=== PATIENT | male | born 1950 | race Asian ===

== ENCOUNTER 2020-03-28 13:46 | Inpatient (IN) | payer MEDICARE, SELFPAY ==
[~2020-03-28] VITALS: Ht 170.2 cm; Wt 63.5 kg
[2020-03-28 13:46] VITALS: BP_SYST 140
[2020-03-28 15:34] LABS: BASOPHILS # (AUTO) 0.1 K/uL (0.0-0.2); BASOPHILS % (AUTO) 2.7 % (0.0-2.0); EOSINOPHILS # (AUTO) 0.2 K/uL (0.0-0.4); HEMATOCRIT 50.9 % (36-54); HEMOGLOBIN 17.2 g/dL (14.0-18.0); LYMPHOCYTES # (AUTO) 0.5 K/uL (1.0-5.5); LYMPHOCYTES % (AUTO) 12.4 % (20.5-51.5); MEAN CORPUSCULAR HEMOGLOBIN 33 pg (27-31); MEAN CORPUSCULAR HGB CONC 34 % (32-36); MEAN CORPUSCULAR VOLUME 98 fL (79.0-98.0); MONOCYTES # (AUTO) 0.3 K/uL (0.0-1.0); MONOCYTES % (AUTO) 8.3 % (1.7-9.3); NEUTROPHILS # (AUTO) 2.6 K/uL (1.8-7.7); NEUTROPHILS % (AUTO) 71.6 % (40.0-70.0); PLATELET COUNT (AUTO) 103 K/uL (130-430); RED BLOOD CELL COUNT(AUTO) 5.21 MIL/uL (4.2-6.2); RED CELL DISTRIBUTION WIDTH 12.6 % (9.0-15.0); WHITE BLOOD COUNT (AUTO) 3.7 K/uL (4.8-10.8)
[2020-03-28 15:51] LABS: ALBUMIN 3.3 g/dL (3.4-4.8); CALCIUM 8.1 mg/dL (8.4-11.0); CREATININE 0.9 mg/dL (0.55-1.30); POTASSIUM 3.5 mmol/L (3.5-5.1); TOTAL BILIRUBIN 0.6 mg/dL (0.0-1.0)
[2020-03-28] MEDS ORDERED: NACL 0.9% 1,000 ML IV ONE (16:30)
[2020-03-28 16:45] LABS: C-REACTIVE PROTEIN QUANT 4.8 mg/dL (0-0.5)
[2020-03-28] MEDS ORDERED: ASPIRIN 81 MG TAB.CHEW PO ONE (17:00)
[2020-03-28] MEDS ORDERED: ACETAMINOPHEN 325 MG TABLET PO PRN (18:15)
[2020-03-28] MEDS ORDERED: ONDANSETRON HCL 4 MG/2 ML VIAL IVP PRN (18:15)
[2020-03-28] MEDS ORDERED: cloNIDine HCL 0.1 MG TABLET PO PRN (18:30)
[2020-03-28] MEDS ORDERED: ALBUTEROL MDI INHALATION 8 GM INH INH SCH (19:00)
[2020-03-28] MEDS: FAMOTIDINE 20 MG TABLET PO SCH (19:05)
[2020-03-28] MEDS: POTASSIUM CHLORIDE 10 MEQ in NACL 0.9% 1,000 ML IV SCH (19:10)
[2020-03-28] MEDS ORDERED: METOPROLOL TARTRATE 25 MG TABLET PO ONE (20:45)
[2020-03-28] MEDS: AZITHROMYCIN 500 MG in NS 250 ML IV SCH (20:58)
[2020-03-28] MEDS ORDERED: METOPROLOL TARTRATE 25 MG TABLET ONE (20:58)
[2020-03-28] MEDS: cefTRIAXone 1 GM in D5W 50 ML IV SCH (20:59)
[2020-03-28] MEDS: DEXAMETHASONE SOD PHOSPHATE 10 MG/ML VIAL IVP SCH (20:59)
[2020-03-28] MEDS: ASCORBIC ACID 500 MG TABLET PO SCH (21:00)
[2020-03-28] MEDS ORDERED: ENOXAPARIN SODIUM 40 MG/0.4 ML SYRINGE SUBCUT ONE (22:00)
[2020-03-28] MEDS ORDERED: ENOXAPARIN SODIUM 40 MG/0.4 ML SYRINGE ONE (23:26)
[2020-03-29 00:42] LABS: CALCIUM 7.3 mg/dL (8.4-11.0); CREATININE 0.83 mg/dL (0.55-1.30); POTASSIUM 3.7 mmol/L (3.5-5.1)
[2020-03-29 00:52] LABS: ALBUMIN 2.6 g/dL (3.4-4.8); TOTAL BILIRUBIN 0.4 mg/dL (0.0-1.0)
[2020-03-29 00:59] LABS: C-REACTIVE PROTEIN QUANT 4.5 mg/dL (0-0.5)
[2020-03-29 04:18] VITALS: BP_SYST 121
[2020-03-29] MEDS: POTASSIUM CHLORIDE 10 MEQ in NACL 0.9% 1,000 ML IV SCH ×2 (05:47→17:23)
[2020-03-29] MEDS: ASCORBIC ACID 500 MG TABLET PO SCH ×2 (08:50→21:30)
[2020-03-29] MEDS: FAMOTIDINE 20 MG TABLET PO SCH (08:50)
[2020-03-29] MEDS: CHOLECALCIFEROL (VITAMIN D3) 5,000 UNIT TABLET PO SCH (08:55)
[2020-03-29] MEDS: METOPROLOL TARTRATE 25 MG TABLET PO SCH ×2 (09:00→21:30)
[2020-03-29 09:10] VITALS: BP_SYST 113
[2020-03-29 09:18] LABS: BASOPHILS % (AUTO) 0.4 % (0.0-2.0); HEMATOCRIT 47.7 % (36-54); HEMOGLOBIN 16.2 g/dL (14.0-18.0); LYMPHOCYTES # (AUTO) 0.5 K/uL (1.0-5.5); LYMPHOCYTES % (AUTO) 16.7 % (20.5-51.5); MEAN CORPUSCULAR HEMOGLOBIN 33 pg (27-31); MEAN CORPUSCULAR HGB CONC 34 % (32-36); MEAN CORPUSCULAR VOLUME 97 fL (79.0-98.0); MONOCYTES # (AUTO) 0.3 K/uL (0.0-1.0); MONOCYTES % (AUTO) 9.3 % (1.7-9.3); NEUTROPHILS # (AUTO) 2.1 K/uL (1.8-7.7); NEUTROPHILS % (AUTO) 73.6 % (40.0-70.0); RED BLOOD CELL COUNT(AUTO) 4.91 MIL/uL (4.2-6.2); RED CELL DISTRIBUTION WIDTH 12.3 % (9.0-15.0)
[2020-03-29] MEDS ORDERED: AMIODARONE HCL 200 MG TABLET PO ONE (09:45)
[2020-03-29] MEDS ORDERED: *LOVENOX 1MG/KG Q12H/PHARMACY XX ONE (09:45)
[2020-03-29 10:58] LABS: WHITE BLOOD COUNT (AUTO) 2.8 K/uL (4.8-10.8)
[2020-03-29] MEDS ORDERED: ENOXAPARIN SODIUM 80 MG/0.8 ML SYRINGE SUBCUT ONE (11:00)
[2020-03-29] MEDS ORDERED: AMIODARONE HCL 200 MG TABLET ONE (12:25)
[2020-03-29] MEDS: AMIODARONE HCL 200 MG TABLET PO SCH ×2 (12:59→21:30)
[2020-03-29 13:00] VITALS: BP_SYST 108; BP_SYST 110
[2020-03-29 13:13] LABS: PLATELET COUNT (AUTO) 94 K/uL (130-430)
[2020-03-29 17:20] VITALS: BP_SYST 116
[2020-03-29 20:05] VITALS: BP_SYST 134
[2020-03-29] MEDS: DEXAMETHASONE SOD PHOSPHATE 10 MG/ML VIAL IVP SCH (21:00)
[2020-03-29] MEDS: AZITHROMYCIN 500 MG in NS 250 ML IV SCH (21:05)
[2020-03-29] MEDS: ENOXAPARIN SODIUM 80 MG/0.8 ML SYRINGE SUBCUT SCH (21:30)
[2020-03-29] MEDS: cefTRIAXone 1 GM in D5W 50 ML IV SCH (22:05)
[2020-03-30] VITALS (7 sets, daily range): BP systolic 124–160
[2020-03-30] MEDS: POTASSIUM CHLORIDE 10 MEQ in NACL 0.9% 1,000 ML IV SCH ×2 (02:00→09:30)
[2020-03-30] MEDS: AMIODARONE HCL 200 MG TABLET PO SCH ×3 (06:30→21:05)
[2020-03-30 08:27] LABS: BASOPHILS % (AUTO) 0.1 % (0.0-2.0); HEMATOCRIT 45.2 % (36-54); HEMOGLOBIN 15.3 g/dL (14.0-18.0); LYMPHOCYTES # (AUTO) 0.4 K/uL (1.0-5.5); LYMPHOCYTES % (AUTO) 5.3 % (20.5-51.5); MEAN CORPUSCULAR HEMOGLOBIN 33 pg (27-31); MEAN CORPUSCULAR HGB CONC 34 % (32-36); MEAN CORPUSCULAR VOLUME 98 fL (79.0-98.0); MONOCYTES # (AUTO) 0.3 K/uL (0.0-1.0); MONOCYTES % (AUTO) 3.5 % (1.7-9.3); NEUTROPHILS # (AUTO) 6.7 K/uL (1.8-7.7); NEUTROPHILS % (AUTO) 91.1 % (40.0-70.0); PLATELET COUNT (AUTO) 105 K/uL (130-430); RED BLOOD CELL COUNT(AUTO) 4.63 MIL/uL (4.2-6.2); RED CELL DISTRIBUTION WIDTH 12.9 % (9.0-15.0); WHITE BLOOD COUNT (AUTO) 7.3 K/uL (4.8-10.8)
[2020-03-30 08:57] LABS: ALBUMIN 2.4 g/dL (3.4-4.8); BILIRUBIN,DIRECT 0.2 mg/dL (0.0-0.3); CALCIUM 7.6 mg/dL (8.4-11.0); CREATININE 0.8 mg/dL (0.55-1.30); POTASSIUM 3.7 mmol/L (3.5-5.1); TOTAL BILIRUBIN 0.3 mg/dL (0.0-1.0)
[2020-03-30] MEDS: METOPROLOL TARTRATE 25 MG TABLET PO SCH ×2 (09:02→21:05)
[2020-03-30] MEDS: CHOLECALCIFEROL (VITAMIN D3) 5,000 UNIT TABLET PO SCH (09:03)
[2020-03-30] MEDS: FAMOTIDINE 20 MG TABLET PO SCH (09:03)
[2020-03-30] MEDS: ASCORBIC ACID 500 MG TABLET PO SCH ×2 (09:03→21:05)
[2020-03-30] MEDS: ENOXAPARIN SODIUM 80 MG/0.8 ML SYRINGE SUBCUT SCH ×2 (09:04→21:00)
[2020-03-30 10:06] LABS: C-REACTIVE PROTEIN QUANT 4.6 mg/dL (0-0.5)
[2020-03-30] MEDS ORDERED: ALPRAZolam 0.25 MG TABLET PO PRN (14:00)
[2020-03-30] MEDS ORDERED: LOPERAMIDE HCL 2 MG CAPSULE PO PRN ×2 (14:00→14:15)
[2020-03-30] MEDS: AZITHROMYCIN 500 MG in NS 250 ML IV SCH (20:05)
[2020-03-30] MEDS: DEXAMETHASONE SOD PHOSPHATE 10 MG/ML VIAL IVP SCH (20:05)
[2020-03-30] MEDS: cefTRIAXone 1 GM in D5W 50 ML IV SCH (21:05)
[2020-03-31] VITALS (14 sets, daily range): BP systolic 96–146
[2020-03-31 04:59] LABS: PLATELET COUNT (AUTO) 130 K/uL (130-430)
[2020-03-31 05:04] LABS: BASOPHILS % (AUTO) 0.3 % (0.0-2.0); HEMATOCRIT 51.8 % (36-54); HEMOGLOBIN 17.1 g/dL (14.0-18.0); LYMPHOCYTES # (AUTO) 0.4 K/uL (1.0-5.5); LYMPHOCYTES % (AUTO) 2.9 % (20.5-51.5); MEAN CORPUSCULAR HEMOGLOBIN 33 pg (27-31); MEAN CORPUSCULAR HGB CONC 33 % (32-36); MEAN CORPUSCULAR VOLUME 100 fL (79.0-98.0); MONOCYTES # (AUTO) 0.4 K/uL (0.0-1.0); MONOCYTES % (AUTO) 2.8 % (1.7-9.3); NEUTROPHILS # (AUTO) 12.3 K/uL (1.8-7.7); WHITE BLOOD COUNT (AUTO) 13.1 K/uL (4.8-10.8)
[2020-03-31 05:08] LABS: C-REACTIVE PROTEIN QUANT 7.8 mg/dL (0-0.5)
[2020-03-31 05:11] LABS: INR 1.2 (0.80-1.20)
[2020-03-31 05:12] LABS: ALBUMIN 2.4 g/dL (3.4-4.8); CALCIUM 7.7 mg/dL (8.4-11.0); CREATININE 1.45 mg/dL (0.55-1.30); POTASSIUM 3.9 mmol/L (3.5-5.1); TOTAL BILIRUBIN 0.5 mg/dL (0.0-1.0)
[2020-03-31] MEDS: AMIODARONE HCL 200 MG TABLET PO SCH (06:00)
[2020-03-31] MEDS: ASCORBIC ACID 500 MG TABLET PO SCH ×2 (09:00→22:11)
[2020-03-31] MEDS: CHOLECALCIFEROL (VITAMIN D3) 5,000 UNIT TABLET PO SCH (09:00)
[2020-03-31] MEDS: ENOXAPARIN SODIUM 80 MG/0.8 ML SYRINGE SUBCUT SCH ×2 (09:00→22:14)
[2020-03-31] MEDS: METOPROLOL TARTRATE 25 MG TABLET PO SCH ×2 (09:00→22:25)
[2020-03-31] MEDS ORDERED: AMIODARONE HCL 450 MG in D5W 241 ML IV SCH (11:45)
[2020-03-31] MEDS ORDERED: NS 1000 ML IV.SOLN IV ONE (13:06)
[2020-03-31 14:44] LABS: BASOPHILS # (AUTO) 0.1 K/uL (0.0-0.2); BASOPHILS % (AUTO) 0.5 % (0.0-2.0); HEMATOCRIT 54.3 % (36-54); HEMOGLOBIN 17.8 g/dL (14.0-18.0); LYMPHOCYTES # (AUTO) 0.4 K/uL (1.0-5.5); LYMPHOCYTES % (AUTO) 2.6 % (20.5-51.5); MEAN CORPUSCULAR HEMOGLOBIN 33 pg (27-31); MEAN CORPUSCULAR HGB CONC 33 % (32-36); MEAN CORPUSCULAR VOLUME 100 fL (79.0-98.0); MONOCYTES # (AUTO) 0.3 K/uL (0.0-1.0); MONOCYTES % (AUTO) 1.9 % (1.7-9.3); NEUTROPHILS # (AUTO) 13.9 K/uL (1.8-7.7); PLATELET COUNT (AUTO) 116 K/uL (130-430); RED BLOOD CELL COUNT(AUTO) 5.43 MIL/uL (4.2-6.2); RED CELL DISTRIBUTION WIDTH 13.6 % (9.0-15.0); WHITE BLOOD COUNT (AUTO) 14.7 K/uL (4.8-10.8)
[2020-03-31] MEDS: PIPERACILLIN/TAZO 4.5GM/DEX-IS 100 ML IV SCH ×2 (15:22→22:08)
[2020-03-31] MEDS: INSULIN LISPRO SLIDING SCALE 100 UNITS/ML VIAL (humaLOG) SUBCUT PRN (15:28)
[2020-03-31] MEDS: FAMOTIDINE PF 20 MG/2 ML VIAL IVP SCH (16:42)
[2020-03-31] MEDS: PROPOFOL DRIP 100 ML IV PRN (18:08)
[2020-03-31 18:39] LABS: CALCIUM 7.5 mg/dL (8.4-11.0); CREATININE 1.69 mg/dL (0.55-1.30); POTASSIUM 3.8 mmol/L (3.5-5.1)
[2020-03-31] MEDS ORDERED: SODIUM BICARBONATE 8.4% JECT 50 MEQ/50 ML SYRINGE IVP ONE (19:00)
[2020-03-31 19:36] LABS: BILIRUBIN,URINE NEGATIVE (NEGATIVE); BLOOD, URINE 3+ (NEGATIVE); CLARITY/URINE SL CLOUDY (CLEAR); COLOR,URINE RED (YELLOW); GLUCOSE,URINE 2+ (NEGATIVE); KETONES,URINE TRACE (NEGATIVE); LEUKOCYTE ESTERASE ,URINE NEGATIVE (NEGATIVE); NITRITE, URINE NEGATIVE (NEGATIVE); PROTEIN URINE 2+ (NEGATIVE); UROBILINOGEN,URINE 0.2 (0.2-1.0)
[2020-03-31 19:43] LABS: BACTERIA,URINE FEW /HPF (None Seen); MUCUS,URINE None Seen /LPF (None Seen); RBC,URINE >100 /HPF (0-3); WBC,URINE 0-3 /HPF (0-3)
[2020-03-31] MEDS ORDERED: NALOXONE HCL 0.4 MG/ML AMP (NARCAN) IVP PRN (19:45)
[2020-03-31] MEDS: AZITHROMYCIN 500 MG in NS 250 ML IV SCH (22:06)
[2020-03-31] MEDS: DEXAMETHASONE SOD PHOSPHATE 10 MG/ML VIAL IVP SCH (22:10)
[2020-03-31] MEDS: POTASSIUM CHLORIDE 10 MEQ in NACL 0.9% 1,000 ML IV SCH (22:28)
[2020-04-01] VITALS (26 sets, daily range): BP systolic 73–116
[2020-04-01] MEDS ORDERED: NOREPINEPHRINE BITARTRATE 4 MG in NS 246 ML IV PRN (00:45)
[2020-04-01] MEDS ORDERED: NOREPINEPHRINE 4 MG/4 ML VIAL IV ONE (00:45)
[2020-04-01] MEDS: PIPERACILLIN/TAZO 4.5GM/DEX-IS 100 ML IV SCH ×3 (04:26→20:46)
[2020-04-01] MEDS: PROPOFOL DRIP 100 ML IV PRN (04:31)
[2020-04-01] MEDS: INSULIN LISPRO SLIDING SCALE 100 UNITS/ML VIAL (humaLOG) SUBCUT PRN ×2 (06:03→13:13)
[2020-04-01 08:09] LABS: BASOPHILS % (AUTO) 0.2 % (0.0-2.0); HEMATOCRIT 45.7 % (36-54); HEMOGLOBIN 15.2 g/dL (14.0-18.0); LYMPHOCYTES # (AUTO) 0.3 K/uL (1.0-5.5); LYMPHOCYTES % (AUTO) 3.2 % (20.5-51.5); MEAN CORPUSCULAR HEMOGLOBIN 33 pg (27-31); MEAN CORPUSCULAR HGB CONC 33 % (32-36); MEAN CORPUSCULAR VOLUME 99 fL (79.0-98.0); MONOCYTES # (AUTO) 0.2 K/uL (0.0-1.0); MONOCYTES % (AUTO) 2.2 % (1.7-9.3); NEUTROPHILS # (AUTO) 8.5 K/uL (1.8-7.7); PLATELET COUNT (AUTO) 78 K/uL (130-430); RED BLOOD CELL COUNT(AUTO) 4.64 MIL/uL (4.2-6.2); RED CELL DISTRIBUTION WIDTH 13.2 % (9.0-15.0)
[2020-04-01 08:17] LABS: ALBUMIN 1.9 g/dL (3.4-4.8); CALCIUM 7.2 mg/dL (8.4-11.0); CREATININE 1.49 mg/dL (0.55-1.30); POTASSIUM 3.8 mmol/L (3.5-5.1); TOTAL BILIRUBIN 0.5 mg/dL (0.0-1.0)
[2020-04-01 08:44] LABS: C-REACTIVE PROTEIN QUANT 9.5 mg/dL (0-0.5)
[2020-04-01] MEDS: ASCORBIC ACID 500 MG TABLET PO SCH ×2 (09:00→20:49)
[2020-04-01] MEDS: CHOLECALCIFEROL (VITAMIN D3) 5,000 UNIT TABLET PO SCH (09:00)
[2020-04-01] MEDS: METOPROLOL TARTRATE 25 MG TABLET PO SCH ×2 (09:00→20:55)
[2020-04-01] MEDS: ENOXAPARIN SODIUM 80 MG/0.8 ML SYRINGE SUBCUT SCH ×2 (09:00→20:51)
[2020-04-01] MEDS ORDERED: AMIODARONE HCL 200 MG TABLET PO ONE (11:30)
[2020-04-01] MEDS ORDERED: AMIODARONE HCL 200 MG TABLET ONE (12:15)
[2020-04-01] MEDS: MIDAZOLAM HCL IN 0.9 % NACL/PF 50 ML IV PRN (12:16)
[2020-04-01 12:26] LABS: NEUTROPHILS % (AUTO) 94.4 % (40.0-70.0)
[2020-04-01] MEDS: FAMOTIDINE PF 20 MG/2 ML VIAL IVP SCH (12:36)
[2020-04-01] MEDS: POTASSIUM CHLORIDE 10 MEQ in NACL 0.9% 1,000 ML IV SCH (15:28)
[2020-04-01] MEDS: AZITHROMYCIN 500 MG in NS 250 ML IV SCH (20:44)
[2020-04-01] MEDS: DEXAMETHASONE SOD PHOSPHATE 10 MG/ML VIAL IVP SCH (20:48)
[2020-04-02] VITALS (27 sets, daily range): BP systolic 78–164
[2020-04-02] MEDS: INSULIN LISPRO SLIDING SCALE 100 UNITS/ML VIAL (humaLOG) SUBCUT PRN ×4 (00:38→18:56)
[2020-04-02] MEDS: MIDAZOLAM HCL IN 0.9 % NACL/PF 50 ML IV PRN ×2 (00:43→15:30)
[2020-04-02] MEDS: PIPERACILLIN/TAZO 4.5GM/DEX-IS 100 ML IV SCH ×3 (04:00→20:00)
[2020-04-02 07:21] LABS: BASOPHILS % (AUTO) 0.1 % (0.0-2.0); HEMOGLOBIN 15.3 g/dL (14.0-18.0); LYMPHOCYTES # (AUTO) 0.4 K/uL (1.0-5.5); LYMPHOCYTES % (AUTO) 2.8 % (20.5-51.5); MEAN CORPUSCULAR HEMOGLOBIN 33 pg (27-31); MEAN CORPUSCULAR HGB CONC 33 % (32-36); MEAN CORPUSCULAR VOLUME 100 fL (79.0-98.0); MONOCYTES # (AUTO) 0.5 K/uL (0.0-1.0); MONOCYTES % (AUTO) 3.7 % (1.7-9.3); NEUTROPHILS # (AUTO) 12.4 K/uL (1.8-7.7); NEUTROPHILS % (AUTO) 93.4 % (40.0-70.0); PLATELET COUNT (AUTO) 109 K/uL (130-430); RED BLOOD CELL COUNT(AUTO) 4.72 MIL/uL (4.2-6.2); RED CELL DISTRIBUTION WIDTH 13.5 % (9.0-15.0); WHITE BLOOD COUNT (AUTO) 13.2 K/uL (4.8-10.8)
[2020-04-02 07:43] LABS: INR 1.2 (0.80-1.20); PROTHROMBIN TIME 12.7 SECS (9.5-12.5)
[2020-04-02 08:00] LABS: ALBUMIN 2.1 g/dL (3.4-4.8); CALCIUM 7.5 mg/dL (8.4-11.0); CREATININE 2.05 mg/dL (0.55-1.30); POTASSIUM 4.3 mmol/L (3.5-5.1); TOTAL BILIRUBIN 0.6 mg/dL (0.0-1.0)
[2020-04-02] MEDS: METOPROLOL TARTRATE 25 MG TABLET PO SCH ×2 (08:01→21:00)
[2020-04-02] MEDS ORDERED: ENOXAPARIN SODIUM 40 MG/0.4 ML SYRINGE ONE (08:13)
[2020-04-02] MEDS: ASCORBIC ACID 500 MG TABLET PO SCH ×2 (08:13→21:00)
[2020-04-02] MEDS: CHOLECALCIFEROL (VITAMIN D3) 5,000 UNIT TABLET PO SCH (08:13)
[2020-04-02] MEDS: ENOXAPARIN SODIUM 40 MG/0.4 ML SYRINGE SUBCUT SCH (08:16)
[2020-04-02] MEDS: AMIODARONE HCL 200 MG TABLET PO SCH ×2 (09:00→21:00)
[2020-04-02] MEDS: MORPHINE I.V. DRIP 100 ML IV PRN (11:12)
[2020-04-02] MEDS: PROPOFOL DRIP 100 ML IV PRN (11:13)
[2020-04-02] MEDS: POTASSIUM CHLORIDE 10 MEQ in NACL 0.9% 1,000 ML IV SCH (11:34)
[2020-04-02] MEDS: FAMOTIDINE PF 20 MG/2 ML VIAL IVP SCH (13:40)
[2020-04-02] MEDS: NOREPINEPHRINE BITARTRATE 32 MG in D5W 218 ML IV PRN (19:48)
[2020-04-02] MEDS: DEXAMETHASONE SOD PHOSPHATE 10 MG/ML VIAL IVP SCH (20:00)
[2020-04-03] VITALS (14 sets, daily range): BP systolic 102–169
[2020-04-03] MEDS: POTASSIUM CHLORIDE 10 MEQ in NACL 0.9% 1,000 ML IV SCH ×3 (00:01→17:43)
[2020-04-03] MEDS: INSULIN LISPRO SLIDING SCALE 100 UNITS/ML VIAL (humaLOG) SUBCUT PRN ×5 (00:45→23:31)
[2020-04-03] MEDS: PIPERACILLIN/TAZO 4.5GM/DEX-IS 100 ML IV SCH ×3 (04:00→20:03)
[2020-04-03] MEDS ORDERED: NOREPINEPHRINE 4 MG/4 ML VIAL IV ONE (07:14)
[2020-04-03] MEDS: NOREPINEPHRINE BITARTRATE 32 MG in D5W 218 ML IV PRN (07:30)
[2020-04-03] MEDS: METOPROLOL TARTRATE 25 MG TABLET PO SCH ×2 (09:00→22:30)
[2020-04-03] MEDS: ENOXAPARIN SODIUM 40 MG/0.4 ML SYRINGE SUBCUT SCH (09:00)
[2020-04-03] MEDS: AMIODARONE HCL 200 MG TABLET PO SCH ×2 (09:00→22:30)
[2020-04-03] MEDS: CHOLECALCIFEROL (VITAMIN D3) 5,000 UNIT TABLET PO SCH (09:26)
[2020-04-03 09:27] LABS: BASOPHILS # (AUTO) 0.2 K/uL (0.0-0.2); BASOPHILS % (AUTO) 1.3 % (0.0-2.0); HEMATOCRIT 49.9 % (36-54); HEMOGLOBIN 16.2 g/dL (14.0-18.0); LYMPHOCYTES # (AUTO) 0.2 K/uL (1.0-5.5); LYMPHOCYTES % (AUTO) 1.7 % (20.5-51.5); MEAN CORPUSCULAR HEMOGLOBIN 32 pg (27-31); MEAN CORPUSCULAR HGB CONC 32 % (32-36); MEAN CORPUSCULAR VOLUME 99 fL (79.0-98.0); MONOCYTES # (AUTO) 0.7 K/uL (0.0-1.0); MONOCYTES % (AUTO) 5.2 % (1.7-9.3); NEUTROPHILS # (AUTO) 12.3 K/uL (1.8-7.7); NEUTROPHILS % (AUTO) 91.8 % (40.0-70.0); RED BLOOD CELL COUNT(AUTO) 5.03 MIL/uL (4.2-6.2); RED CELL DISTRIBUTION WIDTH 13.2 % (9.0-15.0); WHITE BLOOD COUNT (AUTO) 13.4 K/uL (4.8-10.8)
[2020-04-03] MEDS: ASCORBIC ACID 500 MG TABLET PO SCH ×2 (09:27→22:30)
[2020-04-03] MEDS ORDERED: ENOXAPARIN SODIUM 40 MG/0.4 ML SYRINGE ONE (09:30)
[2020-04-03 09:36] LABS: ALBUMIN 2.3 g/dL (3.4-4.8); CALCIUM 7.6 mg/dL (8.4-11.0); CREATININE 2.12 mg/dL (0.55-1.30); POTASSIUM 4.5 mmol/L (3.5-5.1); TOTAL BILIRUBIN 0.8 mg/dL (0.0-1.0)
[2020-04-03 12:00] LABS: PLATELET COUNT (AUTO) 146 K/uL (130-430)
[2020-04-03] MEDS: PROPOFOL DRIP 100 ML IV PRN (12:30)
[2020-04-03] MEDS: FAMOTIDINE PF 20 MG/2 ML VIAL IVP SCH (14:00)
[2020-04-03] MEDS ORDERED: METOCLOPRAMIDE HCL 10 MG/2 ML VIAL IVP ONE (18:30)
[2020-04-03] MEDS: MIDAZOLAM HCL IN 0.9 % NACL/PF 50 ML IV PRN (19:34)
[2020-04-03] MEDS: MORPHINE I.V. DRIP 100 ML IV PRN (19:34)
[2020-04-03] MEDS ORDERED: ASCORBIC ACID 500 MG TABLET ONE (22:20)
[2020-04-03] MEDS ORDERED: DEXAMETHASONE SOD PHOSPHATE 10 MG/ML VIAL ONE (22:20)
[2020-04-03] MEDS ORDERED: METOCLOPRAMIDE HCL 10 MG/2 ML VIAL ONE (22:20)
[2020-04-03] MEDS ORDERED: METOPROLOL TARTRATE 25 MG TABLET ONE (22:20)
[2020-04-03] MEDS: DEXAMETHASONE SOD PHOSPHATE 10 MG/ML VIAL IVP SCH (22:30)
[2020-04-03] MEDS: METOCLOPRAMIDE HCL 10 MG/2 ML VIAL IVP SCH (22:46)
[2020-04-04] VITALS (19 sets, daily range): BP systolic 119–135
[2020-04-04] MEDS: POTASSIUM CHLORIDE 10 MEQ in NACL 0.9% 1,000 ML IV SCH ×3 (02:44→23:26)
[2020-04-04] MEDS: PIPERACILLIN/TAZO 4.5GM/DEX-IS 100 ML IV SCH ×3 (05:27→22:00)
[2020-04-04] MEDS: METOCLOPRAMIDE HCL 10 MG/2 ML VIAL IVP SCH ×3 (05:27→23:26)
[2020-04-04 06:47] LABS: BASOPHILS % (AUTO) 0.6 % (0.0-2.0); EOSINOPHILS # (AUTO) 0.1 K/uL (0.0-0.4); EOSINOPHILS % (AUTO) 1.6 % (0.0-4.0); HEMATOCRIT 39.1 % (36-54); HEMOGLOBIN 13.4 g/dL (14.0-18.0); LYMPHOCYTES # (AUTO) 0.2 K/uL (1.0-5.5); LYMPHOCYTES % (AUTO) 2.5 % (20.5-51.5); MEAN CORPUSCULAR HEMOGLOBIN 34 pg (27-31); MEAN CORPUSCULAR HGB CONC 34 % (32-36); MEAN CORPUSCULAR VOLUME 99 fL (79.0-98.0); MONOCYTES # (AUTO) 0.2 K/uL (0.0-1.0); MONOCYTES % (AUTO) 3.1 % (1.7-9.3); NEUTROPHILS # (AUTO) 7.2 K/uL (1.8-7.7); NEUTROPHILS % (AUTO) 92.2 % (40.0-70.0); PLATELET COUNT (AUTO) 155 K/uL (130-430); RED BLOOD CELL COUNT(AUTO) 3.94 MIL/uL (4.2-6.2); RED CELL DISTRIBUTION WIDTH 13.4 % (9.0-15.0); WHITE BLOOD COUNT (AUTO) 7.8 K/uL (4.8-10.8)
[2020-04-04 07:09] LABS: ALBUMIN 1.8 g/dL (3.4-4.8); CALCIUM 7.3 mg/dL (8.4-11.0); CREATININE 1.49 mg/dL (0.55-1.30); POTASSIUM 4.8 mmol/L (3.5-5.1); TOTAL BILIRUBIN 0.6 mg/dL (0.0-1.0)
[2020-04-04] MEDS: METOPROLOL TARTRATE 25 MG TABLET PO SCH ×2 (08:19→22:00)
[2020-04-04] MEDS: PROPOFOL DRIP 100 ML IV PRN (08:30)
[2020-04-04] MEDS: ENOXAPARIN SODIUM 40 MG/0.4 ML SYRINGE SUBCUT SCH (12:15)
[2020-04-04] MEDS: CHOLECALCIFEROL (VITAMIN D3) 5,000 UNIT TABLET PO SCH (12:15)
[2020-04-04] MEDS: AMIODARONE HCL 200 MG TABLET PO SCH ×2 (12:15→22:00)
[2020-04-04] MEDS: ASCORBIC ACID 500 MG TABLET PO SCH ×2 (12:15→22:00)
[2020-04-04] MEDS: FAMOTIDINE PF 20 MG/2 ML VIAL IVP SCH (14:29)
[2020-04-04] MEDS: INSULIN LISPRO SLIDING SCALE 100 UNITS/ML VIAL (humaLOG) SUBCUT PRN ×2 (17:58→23:28)
[2020-04-04] MEDS: DEXAMETHASONE SOD PHOSPHATE 10 MG/ML VIAL IVP SCH (22:00)
[2020-04-05] VITALS (23 sets, daily range): BP systolic 125–175
[2020-04-05] MEDS: PIPERACILLIN/TAZO 4.5GM/DEX-IS 100 ML IV SCH ×3 (03:08→20:47)
[2020-04-05 05:29] LABS: BASOPHILS % (AUTO) 0.7 % (0.0-2.0); HEMOGLOBIN 13.3 g/dL (14.0-18.0); LYMPHOCYTES # (AUTO) 0.2 K/uL (1.0-5.5); LYMPHOCYTES % (AUTO) 2.4 % (20.5-51.5); MEAN CORPUSCULAR HEMOGLOBIN 33 pg (27-31); MEAN CORPUSCULAR HGB CONC 33 % (32-36); MEAN CORPUSCULAR VOLUME 99 fL (79.0-98.0); MONOCYTES # (AUTO) 0.3 K/uL (0.0-1.0); MONOCYTES % (AUTO) 4.1 % (1.7-9.3); NEUTROPHILS # (AUTO) 6.4 K/uL (1.8-7.7); NEUTROPHILS % (AUTO) 92.8 % (40.0-70.0); PLATELET COUNT (AUTO) 84 K/uL (130-430); RED BLOOD CELL COUNT(AUTO) 4.04 MIL/uL (4.2-6.2); RED CELL DISTRIBUTION WIDTH 13.4 % (9.0-15.0); WHITE BLOOD COUNT (AUTO) 6.9 K/uL (4.8-10.8)
[2020-04-05 05:38] LABS: CALCIUM 7.4 mg/dL (8.4-11.0); CREATININE 1.27 mg/dL (0.55-1.30); POTASSIUM 4.9 mmol/L (3.5-5.1)
[2020-04-05] MEDS: METOCLOPRAMIDE HCL 10 MG/2 ML VIAL IVP SCH ×3 (05:50→20:47)
[2020-04-05] MEDS: INSULIN LISPRO SLIDING SCALE 100 UNITS/ML VIAL (humaLOG) SUBCUT PRN ×3 (06:18→17:14)
[2020-04-05] MEDS: D5W 1,000 ML IV SCH ×2 (07:45→22:30)
[2020-04-05] MEDS: PROPOFOL DRIP 100 ML IV PRN ×2 (08:30→22:12)
[2020-04-05] MEDS: ENOXAPARIN SODIUM 40 MG/0.4 ML SYRINGE SUBCUT SCH (09:59)
[2020-04-05] MEDS: CHOLECALCIFEROL (VITAMIN D3) 5,000 UNIT TABLET PO SCH (09:59)
[2020-04-05] MEDS: ASCORBIC ACID 500 MG TABLET PO SCH ×2 (09:59→20:45)
[2020-04-05] MEDS: AMIODARONE HCL 200 MG TABLET PO SCH ×2 (10:00→20:48)
[2020-04-05] MEDS: METOPROLOL TARTRATE 25 MG TABLET PO SCH ×2 (10:01→20:45)
[2020-04-05] MEDS: FAMOTIDINE PF 20 MG/2 ML VIAL IVP SCH (14:00)
[2020-04-05] MEDS: DEXAMETHASONE SOD PHOSPHATE 10 MG/ML VIAL IVP SCH (20:46)
[2020-04-06] VITALS (28 sets, daily range): BP systolic 122–175
[2020-04-06] MEDS: PIPERACILLIN/TAZO 4.5GM/DEX-IS 100 ML IV SCH ×3 (04:00→20:35)
[2020-04-06] MEDS ORDERED: MIDAZOLAM HCL IN 0.9 % NACL/PF 50 ML IV ONE (05:48)
[2020-04-06] MEDS: METOCLOPRAMIDE HCL 10 MG/2 ML VIAL IVP SCH ×3 (05:51→22:00)
[2020-04-06] MEDS: INSULIN LISPRO SLIDING SCALE 100 UNITS/ML VIAL (humaLOG) SUBCUT PRN ×2 (05:59→13:47)
[2020-04-06 06:02] LABS: BASOPHILS % (AUTO) 0.3 % (0.0-2.0); HEMATOCRIT 40.3 % (36-54); HEMOGLOBIN 13.3 g/dL (14.0-18.0); LYMPHOCYTES # (AUTO) 0.1 K/uL (1.0-5.5); LYMPHOCYTES % (AUTO) 1.5 % (20.5-51.5); MEAN CORPUSCULAR HEMOGLOBIN 33 pg (27-31); MEAN CORPUSCULAR HGB CONC 33 % (32-36); MEAN CORPUSCULAR VOLUME 100 fL (79.0-98.0); MONOCYTES # (AUTO) 0.2 K/uL (0.0-1.0); MONOCYTES % (AUTO) 2.9 % (1.7-9.3); NEUTROPHILS # (AUTO) 7.5 K/uL (1.8-7.7); NEUTROPHILS % (AUTO) 95.3 % (40.0-70.0); RED BLOOD CELL COUNT(AUTO) 4.04 MIL/uL (4.2-6.2); RED CELL DISTRIBUTION WIDTH 13.4 % (9.0-15.0); WHITE BLOOD COUNT (AUTO) 7.9 K/uL (4.8-10.8)
[2020-04-06] MEDS: MIDAZOLAM HCL IN 0.9 % NACL/PF 50 ML IV PRN (06:19)
[2020-04-06 06:27] LABS: PLATELET COUNT (AUTO) 69 K/uL (130-430)
[2020-04-06] MEDS: METOPROLOL TARTRATE 25 MG TABLET PO SCH ×2 (09:00→20:57)
[2020-04-06 09:20] LABS: ALBUMIN 1.8 g/dL (3.4-4.8); CALCIUM 7.6 mg/dL (8.4-11.0); CREATININE 1.08 mg/dL (0.55-1.30); POTASSIUM 4.5 mmol/L (3.5-5.1); TOTAL BILIRUBIN 1.1 mg/dL (0.0-1.0)
[2020-04-06] MEDS: AMIODARONE HCL 200 MG TABLET PO SCH (09:24)
[2020-04-06] MEDS: ASCORBIC ACID 500 MG TABLET PO SCH ×2 (09:25→20:35)
[2020-04-06] MEDS: ENOXAPARIN SODIUM 40 MG/0.4 ML SYRINGE SUBCUT SCH ×2 (09:26→20:56)
[2020-04-06] MEDS: CHOLECALCIFEROL (VITAMIN D3) 5,000 UNIT TABLET PO SCH (09:26)
[2020-04-06] MEDS: D5W 1,000 ML IV SCH (09:27)
[2020-04-06] MEDS: MORPHINE I.V. DRIP 100 ML IV PRN (12:20)
[2020-04-06 12:35] LABS: RETICULOCYTE COUNT 1.4 % (0.5-1.5)
[2020-04-06 13:07] LABS: C-REACTIVE PROTEIN QUANT 0.4 mg/dL (0-0.5); THYROID STIMULATING HORMONE 0.07 uIu/mL (0.34-4.82)
[2020-04-06 13:19] LABS: INR 1.1 (0.80-1.20); PROTHROMBIN TIME 11.5 SECS (9.5-12.5)
[2020-04-06] MEDS: FAMOTIDINE PF 20 MG/2 ML VIAL IVP SCH (14:00)
[2020-04-06] MEDS: DEXAMETHASONE SOD PHOSPHATE 10 MG/ML VIAL IVP SCH (20:35)
[2020-04-07] VITALS (30 sets, daily range): BP systolic 105–161
[2020-04-07] MEDS: INSULIN LISPRO SLIDING SCALE 100 UNITS/ML VIAL (humaLOG) SUBCUT PRN ×2 (01:02→06:18)
[2020-04-07 04:47] LABS: LYMPHOCYTES # (AUTO) 0.1 K/uL (1.0-5.5); MONOCYTES # (AUTO) 0.3 K/uL (0.0-1.0); RED CELL DISTRIBUTION WIDTH 13.3 % (9.0-15.0); WHITE BLOOD COUNT (AUTO) 11.4 K/uL (4.8-10.8)
[2020-04-07 04:55] LABS: BASOPHILS % (AUTO) 0.3 % (0.0-2.0); HEMATOCRIT 44.4 % (36-54); HEMOGLOBIN 14.7 g/dL (14.0-18.0); MEAN CORPUSCULAR HEMOGLOBIN 33 pg (27-31); MEAN CORPUSCULAR HGB CONC 33 % (32-36); MEAN CORPUSCULAR VOLUME 99 fL (79.0-98.0); MONOCYTES % (AUTO) 2.5 % (1.7-9.3); NEUTROPHILS % (AUTO) 96.2 % (40.0-70.0); PLATELET COUNT (AUTO) 66 K/uL (130-430); RED BLOOD CELL COUNT(AUTO) 4.49 MIL/uL (4.2-6.2)
[2020-04-07] MEDS: PIPERACILLIN/TAZO 4.5GM/DEX-IS 100 ML IV SCH ×3 (04:58→20:26)
[2020-04-07] MEDS: METOCLOPRAMIDE HCL 10 MG/2 ML VIAL IVP SCH ×3 (04:59→21:15)
[2020-04-07 05:07] LABS: ALANINE AMINOTRANSFERASE 67 U/L (12-78); ALBUMIN 1.7 g/dL (3.4-4.8); ANION GAP 9 (5-15); ASPARTATE AMINOTRANSFERASE 48 U/L (10-37); CALCIUM 7.8 mg/dL (8.4-11.0); CHLORIDE 105 mmol/L (98-107); CREATININE 1.17 mg/dL (0.55-1.30); GLUCOSE 183 mg/dL (70-99); POTASSIUM 4.5 mmol/L (3.5-5.1); SODIUM SERUM 142 mmol/L (136-145); TOTAL BILIRUBIN 1.2 mg/dL (0.0-1.0); UREA NITROGEN, BLOOD 39 mg/dL (8-21)
[2020-04-07 05:10] LABS: GFR AFRICAN AMERICAN 80 mL/min (>90)
[2020-04-07 05:17] LABS: C-REACTIVE PROTEIN QUANT < 0.2 mg/dL (0-0.5)
[2020-04-07 08:10] LABS: HEPATITIS B SURFACE AG Negative (Negative); HEPATITIS C VIRUS AB <0.1 s/co ratio (0.0-0.9)
[2020-04-07] MEDS ORDERED: FUROSEMIDE 20 MG/2 ML VIAL IVP ONE (08:45)
[2020-04-07] MEDS: DOCUSATE SODIUM 100 MG/10 ML UDC PO SCH ×2 (09:00→09:55)
[2020-04-07] MEDS ORDERED: METOPROLOL TARTRATE 5 MG/5 ML VIAL IVP ONE (09:30)
[2020-04-07 09:33] LABS: FOLATE (FOLIC ACID) 6.4 ng/mL (>3.0)
[2020-04-07] MEDS ORDERED: DEXMEDETOMIDINE HCL 400 MCG in NS 96 ML IV PRN (09:45)
[2020-04-07] MEDS: ASCORBIC ACID 500 MG TABLET PO SCH ×2 (09:54→20:27)
[2020-04-07] MEDS: CHOLECALCIFEROL (VITAMIN D3) 5,000 UNIT TABLET PO SCH (09:56)
[2020-04-07] MEDS: AMIODARONE HCL 200 MG TABLET PO SCH (10:15)
[2020-04-07] MEDS: FUROSEMIDE 20 MG/2 ML VIAL IVP SCH ×2 (10:30→18:00)
[2020-04-07] MEDS: FAMOTIDINE PF 20 MG/2 ML VIAL IVP SCH (13:17)
[2020-04-07] MEDS: METOPROLOL TARTRATE 25 MG TABLET PO SCH ×2 (15:00→20:28)
[2020-04-07] MEDS: methylPREDNISolone SOD SUCC 40 MG/ML VIAL IVP SCH (20:27)
[2020-04-07] MEDS: SENNA 8.8 MG/5 ML UDC GT SCH (20:27)
[2020-04-07] MEDS: DOCUSATE SODIUM 250 MG CAPSULE PO SCH (20:29)
[2020-04-08] VITALS (30 sets, daily range): BP systolic 97–160
[2020-04-08] MEDS: PIPERACILLIN/TAZO 4.5GM/DEX-IS 100 ML IV SCH ×3 (05:03→20:20)
[2020-04-08] MEDS: FUROSEMIDE 20 MG/2 ML VIAL IVP SCH (05:31)
[2020-04-08] MEDS: METOCLOPRAMIDE HCL 10 MG/2 ML VIAL IVP SCH ×3 (05:32→21:49)
[2020-04-08 06:47] LABS: HEMATOCRIT 44.2 % (36-54); HEMOGLOBIN 14.8 g/dL (14.0-18.0); LYMPHOCYTES # (AUTO) 0.2 K/uL (1.0-5.5); LYMPHOCYTES % (AUTO) 1.4 % (20.5-51.5); MEAN CORPUSCULAR HEMOGLOBIN 33 pg (27-31); MEAN CORPUSCULAR HGB CONC 34 % (32-36); MEAN CORPUSCULAR VOLUME 98 fL (79.0-98.0); MONOCYTES # (AUTO) 0.2 K/uL (0.0-1.0); NEUTROPHILS # (AUTO) 10.5 K/uL (1.8-7.7); NEUTROPHILS % (AUTO) 96.6 % (40.0-70.0); PLATELET COUNT (AUTO) 73 K/uL (130-430); RED BLOOD CELL COUNT(AUTO) 4.49 MIL/uL (4.2-6.2); RED CELL DISTRIBUTION WIDTH 13.6 % (9.0-15.0); WHITE BLOOD COUNT (AUTO) 10.9 K/uL (4.8-10.8)
[2020-04-08 08:47] LABS: ALBUMIN 1.7 g/dL (3.4-4.8); CALCIUM 7.8 mg/dL (8.4-11.0); POTASSIUM 4.3 mmol/L (3.5-5.1); TOTAL BILIRUBIN 2.1 mg/dL (0.0-1.0)
[2020-04-08] MEDS: CHOLECALCIFEROL (VITAMIN D3) 5,000 UNIT TABLET PO SCH (09:00)
[2020-04-08] MEDS: methylPREDNISolone SOD SUCC 40 MG/ML VIAL IVP SCH ×2 (09:00→21:48)
[2020-04-08] MEDS: AMIODARONE HCL 200 MG TABLET PO SCH (09:00)
[2020-04-08] MEDS: SENNA 8.8 MG/5 ML UDC GT SCH ×2 (09:00→20:20)
[2020-04-08] MEDS: DOCUSATE SODIUM 250 MG CAPSULE PO SCH ×2 (09:00→20:20)
[2020-04-08] MEDS: ASCORBIC ACID 500 MG TABLET PO SCH ×2 (09:00→20:20)
[2020-04-08 09:31] LABS: CREATININE 1.2 mg/dL (0.55-1.30)
[2020-04-08] MEDS: METOPROLOL TARTRATE 25 MG TABLET PO SCH ×2 (12:01→20:22)
[2020-04-08] MEDS: FAMOTIDINE PF 20 MG/2 ML VIAL IVP SCH (14:00)
[2020-04-09] VITALS (26 sets, daily range): BP systolic 104–145
[2020-04-09] MEDS: PIPERACILLIN/TAZO 4.5GM/DEX-IS 100 ML IV SCH ×3 (04:24→20:33)
[2020-04-09 04:51] LABS: CALCIUM 7.8 mg/dL (8.4-11.0); CREATININE 1.6 mg/dL (0.55-1.30); PHOSPHORUS 4.1 mg/dL (2.7-4.5); POTASSIUM 3.9 mmol/L (3.5-5.1)
[2020-04-09 05:12] LABS: C-REACTIVE PROTEIN QUANT 3.4 mg/dL (0-0.5)
[2020-04-09] MEDS: METOCLOPRAMIDE HCL 10 MG/2 ML VIAL IVP SCH ×3 (05:28→20:34)
[2020-04-09] MEDS: FUROSEMIDE 20 MG/2 ML VIAL IVP SCH ×2 (06:00→19:12)
[2020-04-09 06:23] LABS: BASOPHILS % (AUTO) 0.2 % (0.0-2.0); HEMATOCRIT 43.9 % (36-54); HEMOGLOBIN 14.7 g/dL (14.0-18.0); LYMPHOCYTES # (AUTO) 0.3 K/uL (1.0-5.5); LYMPHOCYTES % (AUTO) 2.3 % (20.5-51.5); MEAN CORPUSCULAR HEMOGLOBIN 33 pg (27-31); MEAN CORPUSCULAR HGB CONC 33 % (32-36); MEAN CORPUSCULAR VOLUME 99 fL (79.0-98.0); MONOCYTES # (AUTO) 0.1 K/uL (0.0-1.0); MONOCYTES % (AUTO) 1.2 % (1.7-9.3); NEUTROPHILS % (AUTO) 96.3 % (40.0-70.0); PLATELET COUNT (AUTO) 83 K/uL (130-430); RED BLOOD CELL COUNT(AUTO) 4.45 MIL/uL (4.2-6.2); RED CELL DISTRIBUTION WIDTH 13.5 % (9.0-15.0); WHITE BLOOD COUNT (AUTO) 11.4 K/uL (4.8-10.8)
[2020-04-09] MEDS: INSULIN LISPRO SLIDING SCALE 100 UNITS/ML VIAL (humaLOG) SUBCUT PRN (06:43)
[2020-04-09] MEDS: SENNA 8.8 MG/5 ML UDC GT SCH ×2 (09:00→20:35)
[2020-04-09] MEDS: FAMOTIDINE PF 20 MG/2 ML VIAL IVP SCH (09:00)
[2020-04-09] MEDS: DOCUSATE SODIUM 250 MG CAPSULE PO SCH ×2 (09:00→20:34)
[2020-04-09] MEDS: CHOLECALCIFEROL (VITAMIN D3) 5,000 UNIT TABLET PO SCH (12:00)
[2020-04-09] MEDS: ASCORBIC ACID 500 MG TABLET PO SCH ×2 (12:00→20:34)
[2020-04-09] MEDS: METOPROLOL TARTRATE 25 MG TABLET PO SCH ×3 (12:00→21:00)
[2020-04-09] MEDS: AMIODARONE HCL 200 MG TABLET PO SCH (12:00)
[2020-04-09 12:09] LABS: ERYTHROCYTE SEDIMENTATION RATE 16 MM/HR (0-15)
[2020-04-09] MEDS: HEPARIN SODIUM,PORCINE 5,000 UNITS/ML VIAL SUBCUT SCH ×2 (14:00→22:42)
[2020-04-09] MEDS ORDERED: levETIRAcetam 2,000 MG in NS 100 ML IV ONE (15:00)
[2020-04-09] MEDS: MIDAZOLAM HCL IN 0.9 % NACL/PF 50 ML IV PRN (18:54)
[2020-04-09] MEDS: PROPOFOL DRIP 100 ML IV PRN (18:56)
[2020-04-09] MEDS: levETIRAcetam 1,000 MG in NS 100 ML IV SCH (20:33)
[2020-04-09] MEDS ORDERED: HEPARIN SODIUM,PORCINE 5,000 UNITS/ML VIAL ONE (22:19)
[2020-04-09] MEDS ORDERED: methylPREDNISolone SOD SUCC 40 MG/ML VIAL ONE (22:48)
[2020-04-10] VITALS (22 sets, daily range): BP systolic 119–142
[2020-04-10] MEDS: PIPERACILLIN/TAZO 4.5GM/DEX-IS 100 ML IV SCH ×3 (03:10→21:58)
[2020-04-10] MEDS: MIDAZOLAM HCL IN 0.9 % NACL/PF 50 ML IV PRN (03:26)
[2020-04-10] MEDS: PROPOFOL DRIP 100 ML IV PRN (03:27)
[2020-04-10] MEDS: METOCLOPRAMIDE HCL 10 MG/2 ML VIAL IVP SCH ×3 (05:53→22:05)
[2020-04-10] MEDS: FUROSEMIDE 20 MG/2 ML VIAL IVP SCH ×2 (05:53→18:00)
[2020-04-10] MEDS ORDERED: HEPARIN SODIUM,PORCINE 5,000 UNITS/ML VIAL ONE (05:59)
[2020-04-10 06:30] LABS: BASOPHILS # (AUTO) 0.1 K/uL (0.0-0.2); BASOPHILS % (AUTO) 0.3 % (0.0-2.0); EOSINOPHILS % (AUTO) 0.1 % (0.0-4.0); HEMATOCRIT 44.2 % (36-54); HEMOGLOBIN 14.7 g/dL (14.0-18.0); LYMPHOCYTES # (AUTO) 0.2 K/uL (1.0-5.5); MEAN CORPUSCULAR HEMOGLOBIN 33 pg (27-31); MEAN CORPUSCULAR HGB CONC 33 % (32-36); MEAN CORPUSCULAR VOLUME 99 fL (79.0-98.0); MONOCYTES # (AUTO) 0.2 K/uL (0.0-1.0); MONOCYTES % (AUTO) 1.3 % (1.7-9.3); NEUTROPHILS # (AUTO) 16.8 K/uL (1.8-7.7); NEUTROPHILS % (AUTO) 97.3 % (40.0-70.0); PLATELET COUNT (AUTO) 104 K/uL (130-430); RED BLOOD CELL COUNT(AUTO) 4.45 MIL/uL (4.2-6.2); RED CELL DISTRIBUTION WIDTH 13.9 % (9.0-15.0); WHITE BLOOD COUNT (AUTO) 17.3 K/uL (4.8-10.8)
[2020-04-10] MEDS: HEPARIN SODIUM,PORCINE 5,000 UNITS/ML VIAL SUBCUT SCH ×3 (07:10→22:05)
[2020-04-10 07:18] LABS: ALBUMIN 1.8 g/dL (3.4-4.8); CALCIUM 8.5 mg/dL (8.4-11.0); CREATININE 1.27 mg/dL (0.55-1.30); PHOSPHORUS 3.2 mg/dL (2.7-4.5); POTASSIUM 4.3 mmol/L (3.5-5.1); TOTAL BILIRUBIN 3.8 mg/dL (0.0-1.0)
[2020-04-10] MEDS: levETIRAcetam 1,000 MG in NS 100 ML IV SCH ×2 (09:17→21:57)
[2020-04-10] MEDS: SENNA 8.8 MG/5 ML UDC GT SCH ×2 (09:18→21:59)
[2020-04-10] MEDS: AMIODARONE HCL 200 MG TABLET PO SCH (09:21)
[2020-04-10] MEDS: DOCUSATE SODIUM 250 MG CAPSULE PO SCH ×2 (09:21→21:59)
[2020-04-10] MEDS: METOPROLOL TARTRATE 25 MG TABLET PO SCH ×3 (09:22→22:01)
[2020-04-10] MEDS: CHOLECALCIFEROL (VITAMIN D3) 5,000 UNIT TABLET PO SCH (09:22)
[2020-04-10] MEDS: ASCORBIC ACID 500 MG TABLET PO SCH ×2 (09:22→22:00)
[2020-04-10 09:32] LABS: ERYTHROCYTE SEDIMENTATION RATE 73 MM/HR (0-15)
[2020-04-10 10:09] LABS: C-REACTIVE PROTEIN QUANT 3.6 mg/dL (0-0.5)
[2020-04-10] MEDS: FAMOTIDINE PF 20 MG/2 ML VIAL IVP SCH (15:29)
[2020-04-11] VITALS (29 sets, daily range): BP systolic 112–138
[2020-04-11] MEDS: PIPERACILLIN/TAZO 4.5GM/DEX-IS 100 ML IV SCH ×3 (03:47→19:50)
[2020-04-11] MEDS: HEPARIN SODIUM,PORCINE 5,000 UNITS/ML VIAL SUBCUT SCH ×2 (06:07→14:34)
[2020-04-11] MEDS: METOCLOPRAMIDE HCL 10 MG/2 ML VIAL IVP SCH ×3 (06:09→21:02)
[2020-04-11] MEDS: FUROSEMIDE 20 MG/2 ML VIAL IVP SCH ×2 (06:10→17:55)
[2020-04-11 06:47] LABS: BASOPHILS # (AUTO) 0.1 K/uL (0.0-0.2); BASOPHILS % (AUTO) 0.5 % (0.0-2.0); EOSINOPHILS # (AUTO) 0.1 K/uL (0.0-0.4); EOSINOPHILS % (AUTO) 0.3 % (0.0-4.0); HEMATOCRIT 39.5 % (36-54); HEMOGLOBIN 13.2 g/dL (14.0-18.0); LYMPHOCYTES # (AUTO) 0.4 K/uL (1.0-5.5); LYMPHOCYTES % (AUTO) 2.4 % (20.5-51.5); MEAN CORPUSCULAR HEMOGLOBIN 33 pg (27-31); MEAN CORPUSCULAR HGB CONC 33 % (32-36); MEAN CORPUSCULAR VOLUME 99 fL (79.0-98.0); MONOCYTES # (AUTO) 0.6 K/uL (0.0-1.0); MONOCYTES % (AUTO) 3.9 % (1.7-9.3); NEUTROPHILS # (AUTO) 14.9 K/uL (1.8-7.7); NEUTROPHILS % (AUTO) 92.9 % (40.0-70.0); PLATELET COUNT (AUTO) 97 K/uL (130-430); RED BLOOD CELL COUNT(AUTO) 4.01 MIL/uL (4.2-6.2); RED CELL DISTRIBUTION WIDTH 13.7 % (9.0-15.0)
[2020-04-11 08:17] LABS: ALBUMIN 1.5 g/dL (3.4-4.8); CALCIUM 7.7 mg/dL (8.4-11.0); CREATININE 1.05 mg/dL (0.55-1.30); POTASSIUM 3.6 mmol/L (3.5-5.1); TOTAL BILIRUBIN 1.4 mg/dL (0.0-1.0)
[2020-04-11] MEDS: levETIRAcetam 1,000 MG in NS 100 ML IV SCH ×2 (09:00→20:59)
[2020-04-11] MEDS: DOCUSATE SODIUM 250 MG CAPSULE PO SCH ×2 (10:43→21:00)
[2020-04-11] MEDS: AMIODARONE HCL 200 MG TABLET PO SCH (10:43)
[2020-04-11] MEDS: METOPROLOL TARTRATE 25 MG TABLET PO SCH ×3 (10:44→21:01)
[2020-04-11] MEDS: CHOLECALCIFEROL (VITAMIN D3) 5,000 UNIT TABLET PO SCH (10:45)
[2020-04-11] MEDS: ASCORBIC ACID 500 MG TABLET PO SCH ×2 (10:45→21:01)
[2020-04-11] MEDS: SENNA 8.8 MG/5 ML UDC GT SCH ×2 (10:47→20:57)
[2020-04-11] MEDS: FAMOTIDINE PF 20 MG/2 ML VIAL IVP SCH (14:25)
[2020-04-11] MEDS: INSULIN LISPRO SLIDING SCALE 100 UNITS/ML VIAL (humaLOG) SUBCUT PRN (17:57)
[2020-04-12] VITALS (29 sets, daily range): BP systolic 108–133
[2020-04-12] MEDS: PIPERACILLIN/TAZO 4.5GM/DEX-IS 100 ML IV SCH ×3 (03:32→20:28)
[2020-04-12 05:43] LABS: CALCIUM 7.9 mg/dL (8.4-11.0); CREATININE 1.13 mg/dL (0.55-1.30); POTASSIUM 3.1 mmol/L (3.5-5.1)
[2020-04-12] MEDS: FUROSEMIDE 20 MG/2 ML VIAL IVP SCH ×2 (06:01→17:19)
[2020-04-12] MEDS: METOCLOPRAMIDE HCL 10 MG/2 ML VIAL IVP SCH ×3 (06:03→20:32)
[2020-04-12] MEDS: HEPARIN SODIUM,PORCINE 5,000 UNITS/ML VIAL SUBCUT SCH (06:04)
[2020-04-12 06:47] LABS: BASOPHILS # (AUTO) 0.1 K/uL (0.0-0.2); BASOPHILS % (AUTO) 0.4 % (0.0-2.0); EOSINOPHILS # (AUTO) 0.3 K/uL (0.0-0.4); HEMATOCRIT 36.4 % (36-54); HEMOGLOBIN 12.8 g/dL (14.0-18.0); LYMPHOCYTES # (AUTO) 0.5 K/uL (1.0-5.5); LYMPHOCYTES % (AUTO) 3.7 % (20.5-51.5); MEAN CORPUSCULAR HEMOGLOBIN 35 pg (27-31); MEAN CORPUSCULAR HGB CONC 35 % (32-36); MEAN CORPUSCULAR VOLUME 98 fL (79.0-98.0); MONOCYTES # (AUTO) 0.3 K/uL (0.0-1.0); MONOCYTES % (AUTO) 2.3 % (1.7-9.3); NEUTROPHILS # (AUTO) 13.3 K/uL (1.8-7.7); NEUTROPHILS % (AUTO) 91.6 % (40.0-70.0); PLATELET COUNT (AUTO) 192 K/uL (130-430); RED BLOOD CELL COUNT(AUTO) 3.69 MIL/uL (4.2-6.2); RED CELL DISTRIBUTION WIDTH 14.1 % (9.0-15.0); WHITE BLOOD COUNT (AUTO) 14.5 K/uL (4.8-10.8)
[2020-04-12] MEDS: levETIRAcetam 1,000 MG in NS 100 ML IV SCH (09:09)
[2020-04-12] MEDS: METOPROLOL TARTRATE 25 MG TABLET PO SCH ×3 (09:47→20:31)
[2020-04-12] MEDS: CHOLECALCIFEROL (VITAMIN D3) 5,000 UNIT TABLET PO SCH (09:48)
[2020-04-12] MEDS: DOCUSATE SODIUM 250 MG CAPSULE PO SCH ×2 (09:50→20:30)
[2020-04-12] MEDS: METOPROLOL TARTRATE 5 MG/5 ML VIAL IVP PRN (09:50)
[2020-04-12] MEDS: AMIODARONE HCL 200 MG TABLET PO SCH (09:53)
[2020-04-12] MEDS ORDERED: POTASSIUM CHLORIDE 40 MEQ, LIDOCAINE JECT 2% PF 100 MG 50 MG in NS 250 ML IV ONE (11:00)
[2020-04-12] MEDS: INSULIN LISPRO SLIDING SCALE 100 UNITS/ML VIAL (humaLOG) SUBCUT PRN ×2 (12:34→17:21)
[2020-04-12] MEDS: SENNA 8.8 MG/5 ML UDC GT SCH ×2 (13:25→20:28)
[2020-04-12] MEDS: ASCORBIC ACID 500 MG TABLET PO SCH ×2 (13:26→20:31)
[2020-04-12] MEDS: ENOXAPARIN SODIUM 40 MG/0.4 ML SYRINGE SUBCUT SCH (13:33)
[2020-04-12] MEDS: FAMOTIDINE PF 20 MG/2 ML VIAL IVP SCH (15:59)
[2020-04-12] MEDS: levETIRAcetam 1,500 MG in NS 85 ML IV SCH (20:30)
[2020-04-13] VITALS (26 sets, daily range): BP systolic 103–137
[2020-04-13] MEDS: PIPERACILLIN/TAZO 4.5GM/DEX-IS 100 ML IV SCH ×3 (04:48→20:02)
[2020-04-13 06:40] LABS: BASOPHILS % (AUTO) 0.2 % (0.0-2.0); EOSINOPHILS # (AUTO) 0.1 K/uL (0.0-0.4); EOSINOPHILS % (AUTO) 0.7 % (0.0-4.0); HEMATOCRIT 36.9 % (36-54); HEMOGLOBIN 12.2 g/dL (14.0-18.0); LYMPHOCYTES # (AUTO) 0.6 K/uL (1.0-5.5); LYMPHOCYTES % (AUTO) 4.9 % (20.5-51.5); MEAN CORPUSCULAR HEMOGLOBIN 33 pg (27-31); MEAN CORPUSCULAR HGB CONC 33 % (32-36); MEAN CORPUSCULAR VOLUME 99 fL (79.0-98.0); MONOCYTES # (AUTO) 0.5 K/uL (0.0-1.0); MONOCYTES % (AUTO) 3.8 % (1.7-9.3); NEUTROPHILS # (AUTO) 10.7 K/uL (1.8-7.7); NEUTROPHILS % (AUTO) 90.4 % (40.0-70.0); PLATELET COUNT (AUTO) 118 K/uL (130-430); RED BLOOD CELL COUNT(AUTO) 3.75 MIL/uL (4.2-6.2); RED CELL DISTRIBUTION WIDTH 13.9 % (9.0-15.0); WHITE BLOOD COUNT (AUTO) 11.8 K/uL (4.8-10.8)
[2020-04-13 07:37] LABS: ALBUMIN 1.4 g/dL (3.4-4.8); CALCIUM 8.1 mg/dL (8.4-11.0); CREATININE 1.06 mg/dL (0.55-1.30); TOTAL BILIRUBIN 1.5 mg/dL (0.0-1.0)
[2020-04-13] MEDS: ASCORBIC ACID 500 MG TABLET PO SCH (07:56)
[2020-04-13] MEDS: CHOLECALCIFEROL (VITAMIN D3) 5,000 UNIT TABLET PO SCH (07:57)
[2020-04-13] MEDS: DOCUSATE SODIUM 250 MG CAPSULE PO SCH (07:57)
[2020-04-13] MEDS: ENOXAPARIN SODIUM 40 MG/0.4 ML SYRINGE SUBCUT SCH (07:57)
[2020-04-13] MEDS: SENNA 8.8 MG/5 ML UDC GT SCH ×2 (07:57→20:03)
[2020-04-13] MEDS: FUROSEMIDE 20 MG/2 ML VIAL IVP SCH ×2 (07:58→17:45)
[2020-04-13] MEDS: AMIODARONE HCL 200 MG TABLET PO SCH (07:59)
[2020-04-13] MEDS: METOCLOPRAMIDE HCL 10 MG/2 ML VIAL IVP SCH ×3 (07:59→22:00)
[2020-04-13] MEDS ORDERED: COMMUNICATION ORDER XX ONE (08:00)
[2020-04-13] MEDS: METOPROLOL TARTRATE 25 MG TABLET PO SCH (08:00)
[2020-04-13] MEDS: levETIRAcetam 1,500 MG in NS 85 ML IV SCH ×2 (09:17→20:06)
[2020-04-13] MEDS ORDERED: cloNIDine HCL 0.1 MG TABLET GT PRN (09:43)
[2020-04-13] MEDS ORDERED: ACETAMINOPHEN 650 MG/20.3 ML UDC GT PRN (09:45)
[2020-04-13] MEDS ORDERED: POTASSIUM CHLORIDE 40 MEQ, LIDOCAINE JECT 2% PF 100 MG 50 MG in NS 250 ML IV ONE (11:00)
[2020-04-13] MEDS: FAMOTIDINE PF 20 MG/2 ML VIAL IVP SCH (13:53)
[2020-04-13] MEDS: METOPROLOL TARTRATE 25 MG TABLET GT SCH ×2 (13:54→20:05)
[2020-04-13] MEDS: DOCUSATE SODIUM 100 MG/10 ML UDC GT SCH (20:02)
[2020-04-13] MEDS: ASCORBIC ACID 500 MG TABLET GT SCH (20:04)
[2020-04-14] VITALS (27 sets, daily range): BP systolic 107–146
[2020-04-14] MEDS: PIPERACILLIN/TAZO 4.5GM/DEX-IS 100 ML IV SCH ×3 (02:57→21:05)
[2020-04-14] MEDS: FUROSEMIDE 20 MG/2 ML VIAL IVP SCH (05:23)
[2020-04-14] MEDS: METOCLOPRAMIDE HCL 10 MG/2 ML VIAL IVP SCH ×3 (05:24→21:12)
[2020-04-14 06:37] LABS: CALCIUM 8.1 mg/dL (8.4-11.0); CREATININE 1.13 mg/dL (0.55-1.30)
[2020-04-14 07:11] LABS: POTASSIUM 2.9 mmol/L (3.5-5.1)
[2020-04-14] MEDS: AMIODARONE HCL 200 MG TABLET GT SCH (08:53)
[2020-04-14] MEDS: DOCUSATE SODIUM 100 MG/10 ML UDC GT SCH ×2 (08:54→21:09)
[2020-04-14] MEDS: CHOLECALCIFEROL (VITAMIN D3) 5,000 UNIT TABLET GT SCH (08:54)
[2020-04-14] MEDS: ENOXAPARIN SODIUM 40 MG/0.4 ML SYRINGE SUBCUT SCH (08:54)
[2020-04-14] MEDS: METOPROLOL TARTRATE 25 MG TABLET GT SCH ×3 (08:54→21:09)
[2020-04-14] MEDS: SENNA 8.8 MG/5 ML UDC GT SCH ×2 (08:54→21:08)
[2020-04-14] MEDS: ASCORBIC ACID 500 MG TABLET GT SCH ×2 (08:54→21:09)
[2020-04-14] MEDS ORDERED: POTASSIUM CHLORIDE 20 MEQ/PKT PACKET NG SCH (09:00)
[2020-04-14] MEDS: levETIRAcetam 1,500 MG in NS 85 ML IV SCH ×2 (10:20→21:00)
[2020-04-14] MEDS: POTASSIUM CHLORIDE 20 MEQ/PKT PACKET NG SCH (10:20)
[2020-04-14] MEDS: FAMOTIDINE PF 20 MG/2 ML VIAL IVP SCH (15:01)
[2020-04-15] VITALS (26 sets, daily range): BP systolic 113–161
[2020-04-15] MEDS: PIPERACILLIN/TAZO 4.5GM/DEX-IS 100 ML IV SCH ×3 (04:29→20:49)
[2020-04-15 05:05] LABS: CALCIUM 8.2 mg/dL (8.4-11.0); CREATININE 1.05 mg/dL (0.55-1.30)
[2020-04-15 05:08] LABS: POTASSIUM 2.8 mmol/L (3.5-5.1)
[2020-04-15] MEDS ORDERED: POTASSIUM CHLORIDE 40 MEQ in NS 250 ML IV ONE (07:30)
[2020-04-15] MEDS ORDERED: KCL 40 mEq in 100 mL (PREMIX) 100 ML IV ONE (07:30)
[2020-04-15] MEDS: AMIODARONE HCL 200 MG TABLET GT SCH (08:34)
[2020-04-15] MEDS: DOCUSATE SODIUM 100 MG/10 ML UDC GT SCH ×2 (08:44→20:50)
[2020-04-15] MEDS: METOPROLOL TARTRATE 25 MG TABLET GT SCH ×3 (08:45→20:50)
[2020-04-15] MEDS: SENNA 8.8 MG/5 ML UDC GT SCH ×2 (08:45→20:50)
[2020-04-15] MEDS: ASCORBIC ACID 500 MG TABLET GT SCH ×2 (08:45→20:50)
[2020-04-15] MEDS: CHOLECALCIFEROL (VITAMIN D3) 5,000 UNIT TABLET GT SCH (08:46)
[2020-04-15] MEDS: ENOXAPARIN SODIUM 40 MG/0.4 ML SYRINGE SUBCUT SCH (08:47)
[2020-04-15] MEDS: levETIRAcetam 1,500 MG in NS 85 ML IV SCH ×2 (09:07→20:50)
[2020-04-15] MEDS: FAMOTIDINE PF 20 MG/2 ML VIAL IVP SCH (14:20)
[2020-04-15] MEDS: METOCLOPRAMIDE HCL 10 MG/2 ML VIAL IVP SCH (21:48)
[2020-04-16] VITALS (31 sets, daily range): BP systolic 99–169
[2020-04-16] MEDS: PIPERACILLIN/TAZO 4.5GM/DEX-IS 100 ML IV SCH ×3 (03:53→21:18)
[2020-04-16] MEDS: METOCLOPRAMIDE HCL 10 MG/2 ML VIAL IVP SCH ×3 (05:19→22:53)
[2020-04-16] MEDS ORDERED: FUROSEMIDE 20 MG/2 ML VIAL ONE (05:55)
[2020-04-16] MEDS: FUROSEMIDE 20 MG/2 ML VIAL IVP SCH (05:58)
[2020-04-16 07:29] LABS: CALCIUM 8.3 mg/dL (8.4-11.0); CREATININE 0.9 mg/dL (0.55-1.30)
[2020-04-16 07:33] LABS: POTASSIUM 2.8 mmol/L (3.5-5.1)
[2020-04-16] MEDS: POTASSIUM CHLORIDE 20 MEQ/PKT PACKET NG SCH (08:25)
[2020-04-16] MEDS: SENNA 8.8 MG/5 ML UDC GT SCH ×2 (08:26→21:00)
[2020-04-16] MEDS: METOPROLOL TARTRATE 25 MG TABLET GT SCH ×3 (08:26→21:00)
[2020-04-16] MEDS: ASCORBIC ACID 500 MG TABLET GT SCH ×2 (08:26→21:00)
[2020-04-16] MEDS: DOCUSATE SODIUM 100 MG/10 ML UDC GT SCH ×2 (08:26→21:00)
[2020-04-16] MEDS: CHOLECALCIFEROL (VITAMIN D3) 5,000 UNIT TABLET GT SCH (08:27)
[2020-04-16] MEDS: ENOXAPARIN SODIUM 40 MG/0.4 ML SYRINGE SUBCUT SCH (08:27)
[2020-04-16] MEDS: levETIRAcetam 1,500 MG in NS 85 ML IV SCH ×2 (08:31→21:00)
[2020-04-16] MEDS: AMIODARONE HCL 200 MG TABLET GT SCH (08:35)
[2020-04-16] MEDS ORDERED: POTASSIUM CHLORIDE 40 MEQ, LIDOCAINE JECT 2% PF 100 MG 50 MG in NS 250 ML IV ONE (11:00)
[2020-04-16] MEDS: FAMOTIDINE PF 20 MG/2 ML VIAL IVP SCH (13:03)
[2020-04-16] MEDS ORDERED: MORPHINE 2 MG/ML INJ. SYRINGE IVP PRN (16:45)
[2020-04-16 20:27] LABS: CALCIUM 8.5 mg/dL (8.4-11.0); CREATININE 1.03 mg/dL (0.55-1.30)
[2020-04-16 20:38] LABS: POTASSIUM 4.4 mmol/L (3.5-5.1)
[2020-04-17] VITALS (28 sets, daily range): BP systolic 111–202
[2020-04-17] MEDS: PIPERACILLIN/TAZO 4.5GM/DEX-IS 100 ML IV SCH ×3 (04:00→20:02)
[2020-04-17] MEDS: METOCLOPRAMIDE HCL 10 MG/2 ML VIAL IVP SCH ×3 (06:46→21:51)
[2020-04-17] MEDS: FUROSEMIDE 20 MG/2 ML VIAL IVP SCH (06:46)
[2020-04-17] MEDS: DOCUSATE SODIUM 100 MG/10 ML UDC GT SCH ×2 (08:26→20:04)
[2020-04-17] MEDS: METOPROLOL TARTRATE 25 MG TABLET GT SCH ×3 (08:26→21:51)
[2020-04-17] MEDS: ASCORBIC ACID 500 MG TABLET GT SCH ×2 (08:27→20:04)
[2020-04-17] MEDS: AMIODARONE HCL 200 MG TABLET GT SCH (08:27)
[2020-04-17] MEDS: CHOLECALCIFEROL (VITAMIN D3) 5,000 UNIT TABLET GT SCH (08:27)
[2020-04-17] MEDS: levETIRAcetam 1,500 MG in NS 85 ML IV SCH ×2 (08:28→21:51)
[2020-04-17] MEDS: ENOXAPARIN SODIUM 40 MG/0.4 ML SYRINGE SUBCUT SCH (08:29)
[2020-04-17 09:30] LABS: CALCIUM 8.4 mg/dL (8.4-11.0); CREATININE 0.68 mg/dL (0.55-1.30)
[2020-04-17] MEDS ORDERED: hydrALAZINE HCL 20 MG/ML VIAL IVP PRN (09:30)
[2020-04-17 09:31] LABS: POTASSIUM 4.5 mmol/L (3.5-5.1)
[2020-04-17] MEDS: SENNA 8.8 MG/5 ML UDC GT SCH ×2 (11:19→20:08)
[2020-04-17] MEDS: POTASSIUM CHLORIDE 20 MEQ/PKT PACKET NG SCH (11:20)
[2020-04-17] MEDS: FAMOTIDINE PF 20 MG/2 ML VIAL IVP SCH (13:44)
[2020-04-17] MEDS ORDERED: NALOXONE HCL 0.4 MG/ML AMP (NARCAN) IVP PRN (19:15)
[2020-04-17] MEDS ORDERED: MORPHINE 2 MG/ML INJ. SYRINGE IVP PRN (19:15)
[2020-04-17] MEDS ORDERED: MORPHINE 2 MG/ML INJ. SYRINGE ONE (21:08)
[2020-04-18] VITALS (28 sets, daily range): BP systolic 104–143
[2020-04-18] MEDS: PIPERACILLIN/TAZO 4.5GM/DEX-IS 100 ML IV SCH ×2 (04:53→11:50)
[2020-04-18 05:10] LABS: BASOPHILS % (AUTO) 0.3 % (0.0-2.0); EOSINOPHILS # (AUTO) 0.2 K/uL (0.0-0.4); EOSINOPHILS % (AUTO) 3.7 % (0.0-4.0); HEMATOCRIT 35.7 % (36-54); HEMOGLOBIN 11.6 g/dL (14.0-18.0); LYMPHOCYTES # (AUTO) 0.8 K/uL (1.0-5.5); MEAN CORPUSCULAR HEMOGLOBIN 33 pg (27-31); MEAN CORPUSCULAR HGB CONC 32 % (32-36); MEAN CORPUSCULAR VOLUME 101 fL (79.0-98.0); MONOCYTES # (AUTO) 0.2 K/uL (0.0-1.0); MONOCYTES % (AUTO) 3.8 % (1.7-9.3); NEUTROPHILS # (AUTO) 3.9 K/uL (1.8-7.7); NEUTROPHILS % (AUTO) 76.2 % (40.0-70.0); PLATELET COUNT (AUTO) 155 K/uL (130-430); RED BLOOD CELL COUNT(AUTO) 3.55 MIL/uL (4.2-6.2); RED CELL DISTRIBUTION WIDTH 14.3 % (9.0-15.0); WHITE BLOOD COUNT (AUTO) 5.2 K/uL (4.8-10.8)
[2020-04-18] MEDS: METOCLOPRAMIDE HCL 10 MG/2 ML VIAL IVP SCH ×3 (05:36→21:18)
[2020-04-18 06:20] LABS: CALCIUM 8.3 mg/dL (8.4-11.0); CREATININE 0.87 mg/dL (0.55-1.30); POTASSIUM 3.3 mmol/L (3.5-5.1)
[2020-04-18] MEDS: FUROSEMIDE 20 MG/2 ML VIAL IVP SCH (06:35)
[2020-04-18] MEDS ORDERED: NALOXONE HCL 0.4 MG/ML AMP (NARCAN) IVP PRN (08:00)
[2020-04-18] MEDS: levETIRAcetam 1,500 MG in NS 85 ML IV SCH ×2 (08:38→20:21)
[2020-04-18] MEDS: SENNA 8.8 MG/5 ML UDC GT SCH ×2 (08:38→20:24)
[2020-04-18] MEDS: DOCUSATE SODIUM 100 MG/10 ML UDC GT SCH ×2 (08:39→20:22)
[2020-04-18] MEDS: POTASSIUM CHLORIDE 20 MEQ/PKT PACKET NG SCH (08:39)
[2020-04-18] MEDS: ASCORBIC ACID 500 MG TABLET GT SCH ×2 (08:39→20:24)
[2020-04-18] MEDS: AMIODARONE HCL 200 MG TABLET GT SCH (08:40)
[2020-04-18] MEDS: METOPROLOL TARTRATE 25 MG TABLET GT SCH ×3 (08:40→20:22)
[2020-04-18] MEDS: CHOLECALCIFEROL (VITAMIN D3) 5,000 UNIT TABLET GT SCH (08:40)
[2020-04-18] MEDS: ENOXAPARIN SODIUM 40 MG/0.4 ML SYRINGE SUBCUT SCH (08:53)
[2020-04-18] MEDS: FAMOTIDINE PF 20 MG/2 ML VIAL IVP SCH (13:32)
[2020-04-18] MEDS: MORPHINE 2 MG/ML INJ. SYRINGE IVP PRN ×3 (13:35→21:21)
[2020-04-18] MEDS ORDERED: cefTRIAXone 1 GM in D5W 50 ML IV SCH (17:00)
[2020-04-18] MEDS ORDERED: MORPHINE 2 MG/ML INJ. SYRINGE ONE (20:00)
[2020-04-19] VITALS (22 sets, daily range): BP systolic 118–166
[2020-04-19] MEDS ORDERED: FUROSEMIDE 20 MG/2 ML VIAL ONE (06:29)
[2020-04-19] MEDS: FUROSEMIDE 20 MG/2 ML VIAL IVP SCH (06:51)
[2020-04-19] MEDS: METOCLOPRAMIDE HCL 10 MG/2 ML VIAL IVP SCH ×3 (06:51→20:24)
[2020-04-19] MEDS: METOPROLOL TARTRATE 25 MG TABLET GT SCH ×3 (09:00→20:28)
[2020-04-19] MEDS: POTASSIUM CHLORIDE 20 MEQ/PKT PACKET NG SCH (09:00)
[2020-04-19] MEDS: ASCORBIC ACID 500 MG TABLET GT SCH ×2 (09:00→20:23)
[2020-04-19] MEDS: AMIODARONE HCL 200 MG TABLET GT SCH (09:00)
[2020-04-19] MEDS: ENOXAPARIN SODIUM 40 MG/0.4 ML SYRINGE SUBCUT SCH (10:13)
[2020-04-19] MEDS: levETIRAcetam 1,500 MG in NS 85 ML IV SCH ×2 (10:13→20:23)
[2020-04-19] MEDS: CHOLECALCIFEROL (VITAMIN D3) 5,000 UNIT TABLET GT SCH (10:14)
[2020-04-19] MEDS: SENNA 8.8 MG/5 ML UDC GT SCH ×2 (10:15→20:23)
[2020-04-19] MEDS: DOCUSATE SODIUM 100 MG/10 ML UDC GT SCH ×2 (10:18→20:23)
[2020-04-19] MEDS: FAMOTIDINE PF 20 MG/2 ML VIAL IVP SCH (14:54)
[2020-04-19] MEDS ORDERED: MORPHINE I.V. DRIP 100 ML IV PRN (16:30)
[2020-04-20 00:11] VITALS: BP_SYST 144
[2020-04-20 04:13] VITALS: BP_SYST 131
[2020-04-20] MEDS: DOCUSATE SODIUM 100 MG/10 ML UDC GT SCH ×2 (05:13→09:00)
[2020-04-20] MEDS: FUROSEMIDE 20 MG/2 ML VIAL IVP SCH (05:55)
[2020-04-20] MEDS: METOCLOPRAMIDE HCL 10 MG/2 ML VIAL IVP SCH ×3 (06:00→22:00)
[2020-04-20] MEDS: CHOLECALCIFEROL (VITAMIN D3) 5,000 UNIT TABLET GT SCH (09:00)
[2020-04-20] MEDS: AMIODARONE HCL 200 MG TABLET GT SCH (09:00)
[2020-04-20] MEDS: ENOXAPARIN SODIUM 40 MG/0.4 ML SYRINGE SUBCUT SCH (09:00)
[2020-04-20] MEDS: POTASSIUM CHLORIDE 20 MEQ/PKT PACKET NG SCH (09:00)
[2020-04-20 10:10] VITALS: BP_SYST 125
[2020-04-20] MEDS: FAMOTIDINE PF 20 MG/2 ML VIAL IVP SCH (14:00)
[2020-04-20] MEDS: METOPROLOL TARTRATE 25 MG TABLET GT SCH ×2 (15:00→21:00)
[2020-04-20 20:01] VITALS: BP_SYST 136
[2020-04-20] MEDS: ASCORBIC ACID 500 MG TABLET GT SCH (21:00)
[2020-04-20] MEDS: levETIRAcetam 1,500 MG in NS 85 ML IV SCH (21:00)
[2020-04-20] MEDS: SENNA 8.8 MG/5 ML UDC GT SCH (21:00)
[2020-04-21] VITALS (7 sets, daily range): BP systolic 129–158
[2020-04-21] MEDS: METOCLOPRAMIDE HCL 10 MG/2 ML VIAL IVP SCH (05:14)
[2020-04-21] MEDS: FUROSEMIDE 20 MG/2 ML VIAL IVP SCH (05:14)
[2020-04-21] MEDS: METOPROLOL TARTRATE 5 MG/5 ML VIAL IVP PRN ×2 (09:58→17:05)
== END 2020-04-22 00:40 | disposition hospice, inpatient (51) | DRG 870 ==
LOC: SED 13:46 → STU 16:46 → SIC 03-29 02:30 → STU 03-29 02:30 → SIC 03-31 08:37 → STU 04-19 21:56 → SMU 04-19 23:23 → STU 04-20 00:15
PROVIDERS: ADMIT Internal Medicine; ATTEND Internal Medicine
PROC: XW033E5 Introduction of Remdesivir Anti-infective into Peripheral Vein, Percutaneous Approach, New Technology Group 5 (ICD-10-PCS; 2020-03-29)
PROC: 5A1955Z Respiratory Ventilation, Greater than 96 Consecutive Hours (ICD-10-PCS; principal; 2020-03-31)
PROC: 5A09357 Assistance with Respiratory Ventilation, Less than 24 Consecutive Hours, Continuous Positive Airway Pressure (ICD-10-PCS; 2020-03-31)
PROC: 02HV33Z Insertion of Infusion Device into Superior Vena Cava, Percutaneous Approach (ICD-10-PCS; 2020-03-31)
PROC: 5A12012 Performance of Cardiac Output, Single, Manual (ICD-10-PCS; 2020-03-31)
PROC: 0BH17EZ Insertion of Endotracheal Airway into Trachea, Via Natural or Artificial Opening (ICD-10-PCS; 2020-03-31)
DX: A41.9 Sepsis, unspecified organism (principal); U07.1 COVID-19; I46.9 Cardiac arrest, cause unspecified; J12.82 Pneumonia due to coronavirus disease 2019; J80 Acute respiratory distress syndrome; E43 Unspecified severe protein-calorie malnutrition; N17.0 Acute kidney failure with tubular necrosis; R65.21 Severe sepsis with septic shock; R40.20 Unspecified coma; G93.41 Metabolic encephalopathy; G93.1 Anoxic brain damage, not elsewhere classified; I24.8 Other forms of acute ischemic heart disease; E87.0 Hyperosmolality and hypernatremia; Z66 Do not resuscitate; D69.6 Thrombocytopenia, unspecified; D72.819 Decreased white blood cell count, unspecified; E66.9 Obesity, unspecified; E78.5 Hyperlipidemia, unspecified; N18.9 Chronic kidney disease, unspecified; I12.9 Hypertensive chronic kidney disease with stage 1 through stage 4 chronic kidney disease, or unspecified chronic kidney disease; I48.0 Paroxysmal atrial fibrillation; N40.0 Benign prostatic hyperplasia without lower urinary tract symptoms; R73.9 Hyperglycemia, unspecified; F17.290 Nicotine dependence, other tobacco product, uncomplicated; Z51.5 Encounter for palliative care; G40.401 Other generalized epilepsy and epileptic syndromes, not intractable, with status epilepticus; E83.51 Hypocalcemia; E80.6 Other disorders of bilirubin metabolism; E87.6 Hypokalemia; E88.09 Other disorders of plasma-protein metabolism, not elsewhere classified; Z79.01 Long term (current) use of anticoagulants; Z79.899 Other long term (current) drug therapy; Z87.11 Personal history of peptic ulcer disease; Z68.21 Body mass index [BMI] 21.0-21.9, adult; Z79.2 Long term (current) use of antibiotics
CPT/HCPCS: 36415; 36600; 70450-TC; 71045; 74018; 76376; 76770; 80048; 80053; 80076; 81000-TC; 82607; 82728; 82746; 82803-TC; 82962; 83010; 83615-TC; 83735-TC; 83880; 84100-TC; 84439; 84443-TC; 84484; 85025; 85044-TC; 85379; 85384-TC; 85610-TC; 85651-TC; 85730-TC; 86022; 86140; 86803; 86886; 86900; 86901; 87040-TC; 87340; 93005; 93306; 93970; 94002; 94003; 94640; 94660; 95816; 99285; C1751; G0378; J0456; J0696; J1030; J1100; J1644; J1650; J1940; J1953; J2270; J2405; J2543; J2704; J2765; J3480; J3490; J7030; J7050; J7060; U0003